=== PATIENT | male | born 1965 | race Caucasian/White ===

== ENCOUNTER → 2018-10-10 | Outpatient (CLI) | payer OTHER ==
[~2018-10-10] MED LIST: CARI350; DOXY100 PO; ETOD400; HYDMOR2 PO; LACT10SY PO; OXYACE10
== END | disposition home or self-care (01) ==
LOC: LAB SHORT 10:02 → PLD 10:02
DX: L30.8 Other specified dermatitis (principal)
CPT/HCPCS: 88305; 88312

== ENCOUNTER 2021-04-06 06:06 | Day surgery (SDC) | payer OTHER ==
[~2021-04-06] VITALS: Ht 175.3 cm; Wt 142.8 kg
[~2021-04-06 06:06] MED LIST changes: +CYCL10 PO; +DUPIXENT P300 MG/2 M SC; +IBUP800 PO; +LOSARTAN POTAS100 M1 PO
--- NOTE | 2021-04-06 10:58 | NUR ---
04/06/21 1058 RANDAL HART PAIN 4-5/10 UPON DISCH. MAX FENTANYL GIVEN. PERCOCET PO TAB GIVEN.
== END 2021-04-06 10:55 | disposition home or self-care (01) ==
LOC: ORSCSDS 06:06
PROVIDERS: Orthopaedic Surgery
PROC: 0RNJ4ZZ Release Right Shoulder Joint, Percutaneous Endoscopic Approach (ICD-10-PCS; principal; 2021-04-06 07:30)
PROC: 0LQ14ZZ Repair Right Shoulder Tendon, Percutaneous Endoscopic Approach (ICD-10-PCS; principal; 2021-04-06 07:30)
DX: M75.121 Complete rotator cuff tear or rupture of right shoulder, not specified as traumatic (principal); M75.21 Bicipital tendinitis, right shoulder; M75.41 Impingement syndrome of right shoulder; I10 Essential (primary) hypertension; I25.10 Atherosclerotic heart disease of native coronary artery without angina pectoris; G47.33 Obstructive sleep apnea (adult) (pediatric); I25.2 Old myocardial infarction; E66.01 Morbid (severe) obesity due to excess calories; Z68.42 Body mass index [BMI] 45.0-49.9, adult; Z79.899 Other long term (current) drug therapy
CPT/HCPCS: A9270; C1713; J0171; J0330; J0461; J0690; J0735; J1100; J1885; J2250; J2405; J2704; J2710; J2795; J3010; J7120

== ENCOUNTER 2023-03-26 16:19 | Emergency (ER) | payer OTHER ==
[~2023-03-26] VITALS: Ht 175.3 cm; Wt 136.1 kg
[2023-03-26 16:49] VITALS: BP 139/72
[2023-03-26] MEDS ORDERED: Percocet 5-3251 EACH PO (19:20)
== END 2023-03-26 19:18 | disposition home or self-care (01) ==
LOC: ER 16:19
DX: M54.41 Lumbago with sciatica, right side (principal); M79.604 Pain in right leg; Z88.5 Allergy status to narcotic agent; Z88.6 Allergy status to analgesic agent; Z88.8 Allergy status to other drugs, medicaments and biological substances
CPT/HCPCS: 93971; 96372; 99283-25; A9270; J1885

== ENCOUNTER 2023-05-31 16:20 | Inpatient (IN) | payer OTHER ==
[~2023-05-31] VITALS: Ht 175.3 cm; Wt 137.5 kg
[~2023-05-31 16:20] MED LIST changes: +Percocet 5-3251 EACH PO
[2023-05-31] MEDS ORDERED: MELO7.5 PO (16:34)
[2023-05-31 17:40] LABS: BASOPHILS ABSOLUTE AUTO 0.09 K/mm3 (0.00-0.23); BASOPHILS PERCENT AUTO 0 % (0-2); EOSINOPHILS ABSOLUTE AUTO 0.07 K/mm3 (0.00-0.68); EOSINOPHILS PERCENT AUTO 0 % (0-6); Hematocrit 41.4 % (37.0-53.0); IMMATURE GRAN ABSOLUTE AUTO 0.19 K/mm3 (0.00-0.10); IMMATURE GRAN PERCENT AUTO 1 % (0-1); LYMPHOCYTES ABSOLUTE AUTO 2.06 K/mm3 (0.84-5.20); LYMPHOCYTES PERCENT AUTO 8 % (21-46); MONOCYTES ABSOLUTE AUTO 1.75 K/mm3 (0.16-1.47); MONOCYTES PERCENT AUTO 7 % (4-13); Mean Corpuscular HGB Conc 33.8 g/dL (31.5-36.5); Mean Corpuscular Volume 95 fL (80-100); Mean Platelet Volume 9.8 fL (9.1-12.4); NEUTROPHILS ABSOLUTE AUTO 21.55 K/mm3 (1.96-9.15); NEUTROPHILS PERCENT AUTO 84 % (41-73); Platelet Count 240 K/mm3 (150-400); RDW Coefficient Variation 12.8 % (11.7-14.2); RDW Standard Deviation 44.1 fL (35.1-46.3); Red Blood Cell Count 4.37 M/mm3 (4.30-5.90); White Blood Cell Count 25.71 K/mm3 (4.00-11.30)
[2023-05-31 18:32] LABS: Ethanol (Alcohol), Blood, Med <3 mg/dL
[2023-05-31 18:35] LABS: Alanine Aminotransfer (ALT/SGP 50 U/L (12-78); Albumin, Blood 3.6 g/dL (3.4-5.0); Albumin/Globulin Ratio 1.1 (0.8-1.8); Alk Phos 63 U/L (50-136); Anion Gap 5 mmol/L (6-16); Aspartate Aminotrans (AST/SGOT 70 U/L (12-37); Bilirubin, Total 0.6 mg/dL (0.1-1.0); Blood Urea Nitrogen 27 mg/dL (8-24); Bun/Creatinine Ratio 28.4 (12.0-20.0); CO2, Blood 25 mmol/L (21-32); Calcium, Blood 9.2 mg/dL (8.5-10.1); Chloride, Blood 107 mmol/L (98-108); Creatinine, Blood 0.95 mg/dL (0.60-1.20); Globulin, Blood 3.4 g/dL (2.2-4.0); Glomerular Filtration Rate 93 (60-); Glucose, Blood 135 mg/dL (70-99); Potassium, Blood 3.9 mmol/L (3.5-5.5); Sodium, Blood 137 mmol/L (136-145)
[2023-05-31 20:59] VITALS: BP 119/83
[2023-05-31] MEDS ORDERED: DUPIXENT P300 MG/2 M (21:07)
[2023-05-31 22:53] LABS: Hemoglobin 13.1 g/dL (13.5-17.5)
[2023-06-01 03:53] VITALS: BP 135/79
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
[2023-06-01 05:25] LABS: BASOPHILS ABSOLUTE AUTO 0.04 K/mm3 (0.00-0.23); BASOPHILS PERCENT AUTO 0 % (0-2); EOSINOPHILS PERCENT AUTO 0 % (0-6); Hematocrit 36.7 % (37.0-53.0); Hemoglobin 12.5 g/dL (13.5-17.5); IMMATURE GRAN ABSOLUTE AUTO 0.05 K/mm3 (0.00-0.10); IMMATURE GRAN PERCENT AUTO 0 % (0-1); LYMPHOCYTES ABSOLUTE AUTO 1.08 K/mm3 (0.84-5.20); LYMPHOCYTES PERCENT AUTO 6 % (21-46); MONOCYTES ABSOLUTE AUTO 1.55 K/mm3 (0.16-1.47); MONOCYTES PERCENT AUTO 8 % (4-13); Mean Corpuscular HGB 32.2 pg (26.0-34.0); Mean Corpuscular HGB Conc 34.1 g/dL (31.5-36.5); Mean Corpuscular Volume 95 fL (80-100); Mean Platelet Volume 10.1 fL (9.1-12.4); NEUTROPHILS ABSOLUTE AUTO 15.81 K/mm3 (1.96-9.15); NEUTROPHILS PERCENT AUTO 85 % (41-73); Platelet Count 196 K/mm3 (150-400); RDW Coefficient Variation 13.2 % (11.7-14.2); RDW Standard Deviation 45.6 fL (35.1-46.3); Red Blood Cell Count 3.88 M/mm3 (4.30-5.90); White Blood Cell Count 18.53 K/mm3 (4.00-11.30)
[2023-06-01 05:31] LABS: Bun/Creatinine Ratio 32.3 (12.0-20.0); Calcium, Blood 8.4 mg/dL (8.5-10.1); Creatinine, Blood 0.78 mg/dL (0.60-1.20); Magnesium, Blood 2.1 mg/dL (1.6-2.4); Potassium, Blood 4.3 mmol/L (3.5-5.5)
[2023-06-01 08:06] VITALS: BP 152/90
[2023-06-01 12:36] LABS: BASOPHILS ABSOLUTE AUTO 0.03 K/mm3 (0.00-0.23); BASOPHILS PERCENT AUTO 0 % (0-2); EOSINOPHILS ABSOLUTE AUTO 0.06 K/mm3 (0.00-0.68); EOSINOPHILS PERCENT AUTO 0 % (0-6); Hematocrit 36.8 % (37.0-53.0); Hemoglobin 12.7 g/dL (13.5-17.5); IMMATURE GRAN ABSOLUTE AUTO 0.03 K/mm3 (0.00-0.10); IMMATURE GRAN PERCENT AUTO 0 % (0-1); LYMPHOCYTES ABSOLUTE AUTO 1.04 K/mm3 (0.84-5.20); LYMPHOCYTES PERCENT AUTO 7 % (21-46); MONOCYTES ABSOLUTE AUTO 1.37 K/mm3 (0.16-1.47); MONOCYTES PERCENT AUTO 9 % (4-13); Mean Corpuscular HGB 32.6 pg (26.0-34.0); Mean Corpuscular HGB Conc 34.5 g/dL (31.5-36.5); Mean Corpuscular Volume 94 fL (80-100); Mean Platelet Volume 9.9 fL (9.1-12.4); NEUTROPHILS ABSOLUTE AUTO 12.71 K/mm3 (1.96-9.15); NEUTROPHILS PERCENT AUTO 83 % (41-73); Platelet Count 171 K/mm3 (150-400); RDW Coefficient Variation 13.3 % (11.7-14.2); RDW Standard Deviation 45.8 fL (35.1-46.3); White Blood Cell Count 15.24 K/mm3 (4.00-11.30)
[2023-06-01 14:48] VITALS: BP 134/81
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
[2023-06-01 19:20] VITALS: BP 157/83
[2023-06-02 02:39] VITALS: BP 146/78
--- NOTE | 2023-06-02 05:58 | NUR ---
SHIFT SUMMARY NO ACUTE CHANGES TO REPORT OVERNIGHT, PT HAS RESTED OFF AND ON T/O SHIFT, HE REPORTS DIFFICULTY SLEEPING. PAIN IN LEFT LEG, RIBS AND ANKLE RELIEVED WITH OXYCODONE AND TYLENOL. ASSESSMENT UNCHANGED, VITALS ARE STABLE. PT HAS BEEN ABLE TO STAND ON THE SIDE OF THE BED TO USE THE URINAL. TOLERATING PO INTAKE. ABRASIONS TO ARMS REDRESSED WITH MEPILEX THIS SHIFT. DRESSINGS TO KNEES C/D/I. BED IN LOWEST POSITION, CALL LIGHT WITHIN REACH.
[2023-06-02 07:22] VITALS: BP 128/75
[2023-06-02 14:38] VITALS: BP 116/60
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
--- NOTE | 2023-06-02 16:39 | NUR ---
ASSUMED CARE OF PT FROM BRANDI Solorio RN. PROVIDED FAN FOR COMFORT. CALL LIGHT IN REACH.
--- NOTE | 2023-06-02 17:49 | NUR ---
DR ALANIZ IN TO SEE PT.
[2023-06-02 19:14] VITALS: BP 153/75
[2023-06-03 02:26] VITALS: BP 157/88
--- NOTE | 2023-06-03 04:15 | NUR ---
SHIFT SUMMARY PATIENT AOX4, ANDRZEJ WRAP TO LLE ELEVATED ON PILLOWS WITH ICE. MEPILEX TO VINNY ELBOW AND DRESSING TO VINNY KNEES. ROAD RASH RIGHT LOWER BACK. 2L NC WHILE AWAKE SPO2 REMAINS ABOVE 94%. CPAP WHILE ASLEEP WITH 2 L O2 BLEED IN. PATIENT IS ABLE TO TRANSFER TO CHAIR BY BEDSIDE. SITS UP TO USE URINAL. TOLERATING PO INTAKE PAIN MANAGED WELL. VSS, DENIES N/T. CALL LIGHT IN REACH WILL GIVE REPORT TO DAY SHIFT RN.
[2023-06-03 07:33] VITALS: BP 137/73
--- NOTE | 2023-06-03 10:27 | NUR ---
EFRAIN/THERAPY WORKED WITH 210.
--- NOTE | 2023-06-03 11:59 | NUR ---
PNEUMATIC WALKING CAST BOOT BRUSH HOLDER ASSEMBLER HAS NO ONE AVAILABLE TO FIT PT AT THIS TIME. [facility] CONTACTED; PLAN TO SEE PT AT APPROXIMATELY 1300 TO FIT PT FOR L PNEUMATIC WALKING CAST BOOT ORDERED BY DR SINGH.
--- NOTE | 2023-06-03 13:42 | NUR ---
[facility] DELIVERED PNEUMATIC WALKING CAST BOOT TO ROOM.
[2023-06-03 14:47] VITALS: BP 143/77
--- NOTE | 2023-06-03 17:44 | NUR ---
SUMMARY NO ACUTE CHANGES T/O SHIFT. PT WORKED WITH PT AND OT THIS MORNING. PAINFUL FOR PT TO SIT UP IN CHAIR, RESTED IN BED T/O MUCH OF DAY. [facility] DELIVERED PNEUMATIC CAST BOOT PER DR SINGH' ORDER. MEDICATED PER ORDERS FOR PAIN AND PROVIDED ICE FOR COMFORT TO LLE. CALL LIGHT IN REACH.
[2023-06-03 20:17] VITALS: BP 123/84
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
--- NOTE | 2023-06-04 04:37 | NUR ---
SHIFT SUMMARY PATIENT UP IN THE CHAIR THIS EVENING, ABLE TO TRANSFER SELF WHILE NWB ON LLE. ORTHOTICS BOOT WAS BROUGHT IN AND FITTED ON DAY SHIFT, PLAN FOR PATIENT TO WORK WITH PT AND OT TODAY. CHANGED DRESSINGS ON VINNY UE AND VINNY KNEES. YELLOW DRNG NOTED ON R KNEE DRESSING. ANDRZEJ WRAP LOOSLY TO NON ADHERANT DRESSINGS ON UE. MEDICATED FOR PAIN AND TOLERATED WELL. ON RA WHILE AWAKE, CPAP WHILE SLEEPING. NO BM YET, REPORTS MINIMAL FOOD INTAKE. VSS, CALL LIGHT IN REACH.
[2023-06-04 05:21] VITALS: BP 141/94
[2023-06-04 07:14] VITALS: BP 123/75
[2023-06-04 08:36] LABS: Hematocrit 34.2 % (37.0-53.0); Hemoglobin 11.8 g/dL (13.5-17.5); Mean Corpuscular HGB 32.4 pg (26.0-34.0); Mean Corpuscular HGB Conc 34.5 g/dL (31.5-36.5); Mean Corpuscular Volume 94 fL (80-100); Mean Platelet Volume 9.8 fL (9.1-12.4); Platelet Count 167 K/mm3 (150-400); RDW Coefficient Variation 12.9 % (11.7-14.2); Red Blood Cell Count 3.64 M/mm3 (4.30-5.90)
[2023-06-04 14:42] VITALS: BP 139/82
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
[2023-06-04 19:43] VITALS: BP 121/79
[2023-06-05 04:28] VITALS: BP 133/83
[2023-06-05 04:41] LABS: Hematocrit 33.8 % (37.0-53.0); Hemoglobin 11.6 g/dL (13.5-17.5); Mean Corpuscular HGB Conc 34.3 g/dL (31.5-36.5); Mean Corpuscular Volume 93 fL (80-100); Mean Platelet Volume 9.8 fL (9.1-12.4); Platelet Count 162 K/mm3 (150-400); RDW Coefficient Variation 12.8 % (11.7-14.2); RDW Standard Deviation 43.8 fL (35.1-46.3); Red Blood Cell Count 3.62 M/mm3 (4.30-5.90); White Blood Cell Count 8.52 K/mm3 (4.00-11.30)
--- NOTE | 2023-06-05 05:03 | NUR ---
SHIFT SUMMARY AOX4. VSS. REPORTED 7/10 PAIN IN LLE ANKLE & L RIBS, APPLIED ICE TO LLE & MEDICATED 1x c 2 TAB PERCOCET. PT REPORTED PAIN RELIEF DECREASED TO 4/10. +1 EDEMA TO LLE ALONG WITH BRUISING, ABLE TO WIGGLE TOES & FEEL TOUCH, STRONG PULSE, NWB LLE. PLAN TO DC HOME TODAY. CALL LIGHT IN REACH, WILL MONITOR UNTIL DAY NURSE ASSUMES CARE.
[2023-06-05 07:15] VITALS: BP 132/84
[2023-06-05] MEDS ORDERED: OXYACE7.5T PO (11:15)
--- NOTE | 2023-06-05 11:41 | NUR ---
DISCHARGE PT EDUCATED ON AND RECEIVED DISCHARGE INSTRUCTIONS AND VERBALIZED AN UNDERSTANDING. PT'S IS AT THE PHARMACY PICKING UP PAIN MED PRESCRIPTION. IV DC'D. PT'S LEFT ANKLE WRAPPED WITH ANDRZEJ WRAP PER REQUEST. PT HAS WALKING BOOT THAT WAS ORDERED BY Sylvia PT PACKING UP PERSONAL BELONGINGS AND WAITING FOR TO TAKE HIM HOME.
== END 2023-06-05 12:49 | disposition home or self-care (01) | DRG 964 ==
LOC: ER 16:20 → SURS 20:21
PROVIDERS: Emergency Medicine; Surgery; ADMIT Surgery
PROC: 5A09357 Assistance with Respiratory Ventilation, Less than 24 Consecutive Hours, Continuous Positive Airway Pressure (ICD-10-PCS; principal; 2023-05-31)
DX: S36.039A Unspecified laceration of spleen, initial encounter (principal); S22.42XA Multiple fractures of ribs, left side, initial encounter for closed fracture; S27.0XXA Traumatic pneumothorax, initial encounter; S36.029A Unspecified contusion of spleen, initial encounter; M77.52 Other enthesopathy of left foot and ankle; D64.9 Anemia, unspecified; S00.83XA Contusion of other part of head, initial encounter; S82.892A Other fracture of left lower leg, initial encounter for closed fracture; S76.312A Strain of muscle, fascia and tendon of the posterior muscle group at thigh level, left thigh, initial encounter; I10 Essential (primary) hypertension; G47.30 Sleep apnea, unspecified; D89.89 Other specified disorders involving the immune mechanism, not elsewhere classified; S90.02XA Contusion of left ankle, initial encounter; V49.40XA Driver injured in collision with unspecified motor vehicles in traffic accident, initial encounter; Z99.89 Dependence on other enabling machines and devices; Z79.899 Other long term (current) drug therapy; Z98.890 Other specified postprocedural states; Z90.49 Acquired absence of other specified parts of digestive tract
CPT/HCPCS: 36415; 70450; 71045; 71260; 72125; 73552; 73610; 73721; 74177; 80048; 80053; 83735; 85014; 85018; 85025; 85027; 86850; 86900; 86901; 90471; 90702; 94660; 94762; 96361; 96374-59; 96375; 96376; 97110; 97116; 97162; 97166; 97168; 97530; 97535; 99285-25; A9270; G0480; J1170; J1650; J1885; J2405; J7120; L0160; Q9967

== ENCOUNTER → 2025-04-06 | Outpatient (CLI) | payer OTHER ==
[~2025-04-06] MED LIST changes: +DUPIXENT P300 MG/2 M; +MELO7.5 PO; +OXYACE7.5T PO
[2025-04-06 14:46] LABS: BASOPHILS ABSOLUTE AUTO 0.04 K/mm3 (0.00-0.23); BASOPHILS PERCENT AUTO 1 % (0-2); EOSINOPHILS ABSOLUTE AUTO 0.46 K/mm3 (0.00-0.68); EOSINOPHILS PERCENT AUTO 6 % (0-6); Hematocrit 39.4 % (37.0-53.0); Hemoglobin 13.3 g/dL (13.5-17.5); IMMATURE GRAN ABSOLUTE AUTO 0.02 K/mm3 (0.00-0.10); IMMATURE GRAN PERCENT AUTO 0 % (0-1); LYMPHOCYTES ABSOLUTE AUTO 1.27 K/mm3 (0.84-5.20); LYMPHOCYTES PERCENT AUTO 16 % (21-46); MONOCYTES ABSOLUTE AUTO 0.96 K/mm3 (0.16-1.47); MONOCYTES PERCENT AUTO 12 % (4-13); Mean Corpuscular HGB Conc 33.8 g/dL (31.5-36.5); Mean Corpuscular Volume 94 fL (80-100); NEUTROPHILS ABSOLUTE AUTO 5.47 K/mm3 (1.96-9.15); NEUTROPHILS PERCENT AUTO 67 % (41-73); NRBC ABSOLUTE 0.00 K/mm3 (0.00-0.02); NRBC Auto 0.0 /100 WBC (0.0-0.2); Platelet Count 240 K/mm3 (150-400); RDW Coefficient Variation 13.2 % (11.7-14.2); RDW Standard Deviation 45.5 fL (35.1-46.3)
[2025-04-06 14:57] LABS: Alanine Aminotransfer (ALT/SGP 34.0 U/L (12-78); Albumin, Blood 3.6 g/dL (3.4-5.0); Albumin/Globulin Ratio 0.9 (0.8-1.8); Anion Gap 12.0 mmol/L (3-11); Aspartate Aminotrans (AST/SGOT 15.0 U/L (12-37); Bilirubin, Total 0.7 mg/dL (0.1-1.0); Blood Urea Nitrogen 19.0 mg/dL (8-24); CO2, Blood 26.0 mmol/L (21-32); Calcium, Blood 9.5 mg/dL (8.5-10.1); Chloride, Blood 103.0 mmol/L (98-108); Creatinine, Blood 0.86 mg/dL (0.60-1.20); Globulin, Blood 4.0 g/dL (2.2-4.0); Glucose, Blood 93.0 mg/dL (70-99); Potassium, Blood 4.3 mmol/L (3.5-5.5); Sodium, Blood 137.0 mmol/L (136-145); Total Protein, Blood 7.6 g/dL (6.4-8.2)
== END | disposition home or self-care (01) ==
LOC: LAB SHORT 14:41 → LAB 14:41
PROVIDERS: Emergency Medicine
DX: R60.0 Localized edema (principal)
CPT/HCPCS: 80053; 85025

== ENCOUNTER 2025-04-18 03:24 | Day surgery (SDC) | payer OTHER ==
[2025-04-18] MEDS ORDERED: Lidocaine HCl 4% Cream 5 GM ONE (12:33)
== END 2025-04-18 23:00 | disposition home or self-care (01) ==
LOC: WOUND 03:24
DX: S81.801A Unspecified open wound, right lower leg, initial encounter (principal); L03.115 Cellulitis of right lower limb; I87.2 Venous insufficiency (chronic) (peripheral); I10 Essential (primary) hypertension; M19.90 Unspecified osteoarthritis, unspecified site; W22.03XA Walked into furniture, initial encounter
CPT/HCPCS: A9270; G0463

== ENCOUNTER 2025-04-25 03:36 | Day surgery (SDC) | payer OTHER ==
[2025-04-25] MEDS ORDERED: Lidocaine HCl 4% Cream 5 GM ONE (09:24)
== END 2025-04-25 23:00 | disposition home or self-care (01) ==
LOC: WOUND 03:36
DX: L03.115 Cellulitis of right lower limb (principal); S81.801A Unspecified open wound, right lower leg, initial encounter; I87.2 Venous insufficiency (chronic) (peripheral); W01.0XXA Fall on same level from slipping, tripping and stumbling without subsequent striking against object, initial encounter
CPT/HCPCS: A9270

== ENCOUNTER 2025-05-07 04:24 | Day surgery (SDC) | payer OTHER ==
[2025-05-07] MEDS ORDERED: Lidocaine HCl 4% Cream 5 GM ONE (09:17)
== END 2025-05-07 23:00 | disposition home or self-care (01) ==
LOC: WOUND 04:24
DX: L03.115 Cellulitis of right lower limb (principal); I87.2 Venous insufficiency (chronic) (peripheral)
CPT/HCPCS: A9270

== ENCOUNTER 2025-05-14 00:54 | Day surgery (SDC) | payer OTHER ==
[2025-05-14] MEDS ORDERED: Lidocaine HCl 4% Cream 5 GM ONE (09:05)
== END 2025-05-14 23:00 | disposition home or self-care (01) ==
LOC: WOUND 00:54
DX: L97.815 Non-pressure chronic ulcer of other part of right lower leg with muscle involvement without evidence of necrosis (principal); L03.115 Cellulitis of right lower limb; I87.2 Venous insufficiency (chronic) (peripheral)
CPT/HCPCS: A9270

== ENCOUNTER 2025-05-22 04:16 | Day surgery (SDC) | payer OTHER ==
[2025-05-22] MEDS ORDERED: Lidocaine HCl 4% Cream 5 GM ONE ×2 (09:46→10:03)
== END 2025-05-22 23:00 | disposition home or self-care (01) ==
LOC: WOUND 04:16
DX: L03.115 Cellulitis of right lower limb (principal); I87.2 Venous insufficiency (chronic) (peripheral)
CPT/HCPCS: A9270

== ENCOUNTER 2025-05-31 01:53 | Day surgery (SDC) | payer OTHER ==
[2025-05-31] MEDS ORDERED: Lidocaine HCl 4% Cream 5 GM ONE (10:07)
== END 2025-05-31 23:00 | disposition home or self-care (01) ==
LOC: WOUND 01:53
DX: S81.801D Unspecified open wound, right lower leg, subsequent encounter (principal); W01.190D Fall on same level from slipping, tripping and stumbling with subsequent striking against furniture, subsequent encounter; L03.115 Cellulitis of right lower limb
CPT/HCPCS: A9270

== ENCOUNTER 2025-06-05 01:56 | Day surgery (SDC) | payer OTHER | END 2025-06-05 23:00 | disposition home or self-care (01) | LOC: WOUND 01:56 | DX: L03.115 Cellulitis of right lower limb (principal); S81.801D Unspecified open wound, right lower leg, subsequent encounter; I87.2 Venous insufficiency (chronic) (peripheral) | CPT/HCPCS: G0463 ==

== ENCOUNTER 2025-06-12 02:17 | Day surgery (SDC) | payer OTHER ==
[2025-06-12] MEDS ORDERED: Lidocaine HCl 4% Cream 5 GM ONE (09:18)
== END 2025-06-12 23:00 | disposition home or self-care (01) ==
LOC: WOUND 02:17
DX: L03.115 Cellulitis of right lower limb (principal); S81.801D Unspecified open wound, right lower leg, subsequent encounter; I87.2 Venous insufficiency (chronic) (peripheral)
CPT/HCPCS: A9270; G0463

== ENCOUNTER 2025-06-26 02:11 | Day surgery (SDC) | payer OTHER ==
[2025-06-26] MEDS ORDERED: Lidocaine HCl 4% Cream 5 GM ONE (09:40)
== END 2025-06-26 23:00 | disposition home or self-care (01) ==
LOC: WOUND 02:11
DX: L03.115 Cellulitis of right lower limb (principal); I87.2 Venous insufficiency (chronic) (peripheral)
CPT/HCPCS: A9270; G0463

== ENCOUNTER 2025-07-10 00:22 | Day surgery (SDC) | payer OTHER | END 2025-07-10 23:00 | disposition home or self-care (01) | LOC: WOUND 00:22 | DX: L03.115 Cellulitis of right lower limb (principal); L97.812 Non-pressure chronic ulcer of other part of right lower leg with fat layer exposed; I87.2 Venous insufficiency (chronic) (peripheral) | CPT/HCPCS: G0463 ==

== ENCOUNTER 2025-07-17 03:02 | Day surgery (SDC) | payer OTHER ==
[2025-07-17] MEDS ORDERED: Lidocaine HCl 4% Cream 5 GM ONE (09:34)
== END 2025-07-17 23:00 | disposition home or self-care (01) ==
LOC: WOUND 03:02
DX: L03.115 Cellulitis of right lower limb (principal); L97.812 Non-pressure chronic ulcer of other part of right lower leg with fat layer exposed; I87.2 Venous insufficiency (chronic) (peripheral); I10 Essential (primary) hypertension
CPT/HCPCS: A9270

== ENCOUNTER 2025-07-24 00:38 | Day surgery (SDC) | payer OTHER ==
[2025-07-24] MEDS ORDERED: Lidocaine HCl 4% Cream 5 GM ONE (09:30)
== END 2025-07-24 23:00 | disposition home or self-care (01) ==
LOC: WOUND 00:38
DX: L03.115 Cellulitis of right lower limb (principal); I87.2 Venous insufficiency (chronic) (peripheral); I10 Essential (primary) hypertension
CPT/HCPCS: A9270; G0463

== ENCOUNTER 2025-07-31 01:45 | Day surgery (SDC) | payer OTHER | END 2025-07-31 23:00 | disposition home or self-care (01) | LOC: WOUND 01:45 | DX: L97.812 Non-pressure chronic ulcer of other part of right lower leg with fat layer exposed (principal); S81.801A Unspecified open wound, right lower leg, initial encounter; L03.115 Cellulitis of right lower limb; I87.2 Venous insufficiency (chronic) (peripheral); W08.XXXA Fall from other furniture, initial encounter ==

== ENCOUNTER 2025-08-07 00:16 | Day surgery (SDC) | payer OTHER | END 2025-08-07 23:00 | disposition home or self-care (01) | LOC: WOUND 00:16 | DX: L03.115 Cellulitis of right lower limb (principal); I87.2 Venous insufficiency (chronic) (peripheral) | CPT/HCPCS: G0463 ==

== ENCOUNTER 2025-08-21 07:46 | Day surgery (SDC) | payer OTHER ==
[~2025-08-21] VITALS: Ht 175.3 cm; Wt 131.2 kg
[~2025-08-21 07:46] MED LIST changes: +Balanced Salt Epinephrine Irrigation Solution 500 mL IR SCH; +Moxifloxacin HCL 0.5 MG/0.1 ML 0.4MLSYR LEFTEYE SCH; +Ondansetron 4 MG SoluTab MM PRN; +PHENYLEPHRINE\\TROPICAMIDE\\TETRACAINE OPHTHALMIC DILATING SOLN LEFTEYE PRN; +Povidone-Iodine 450 DROP/30 ML Solution LEFTEYE SCH; +Povidone-Iodine 450 DROP/30 ML Solution ONE; +Tetracaine HCl/Pf 0.5% Opth Soln 4 ml ONE
--- NOTE | 2025-08-21 08:47 | NUR ---
08/21/25 0847 Rach Campbell PT REPORTED ANXIETY LEVEL WAS 5/10 PRIOR TO ADMINISTRATION OF VALIUM 10MG PO @ 0842. TETRACAINE IN AT 0846. PLEDGETT IN AT 0847. CALL LIGHT IN PT'S HAND. CONTINUOUS SPO2 AND HR MONITORING IN PLACE.
--- NOTE | 2025-08-21 09:25 | NUR ---
08/21/25 0925 Darcie Fulton HR:61 RR:14 BP:188/11 SPO2:96% ON 10L BLOW BY O2
[2025-08-21 09:45] VITALS: BP 152/79
--- NOTE | 2025-08-21 11:15 | NUR ---
08/21/25 1115 RANDAL HART PT C/O RIGHT SHOULDER PAIN. CHRONIC 03/05. DOES NOT TAKE MEDICATION AT HOME. ONCE RAISED HOB, PAIN RESOLVED DENIES PAIN IN LEFT EYE.
== END 2025-08-21 09:56 | disposition home or self-care (01) ==
LOC: ORSCSDS 07:46
PROVIDERS: Student in an Organized Health Care Education/Training Program
PROC: 08RK3JZ Replacement of Left Lens with Synthetic Substitute, Percutaneous Approach (ICD-10-PCS; principal; 2025-08-21 09:30)
DX: H25.813 Combined forms of age-related cataract, bilateral (principal); Z96.1 Presence of intraocular lens; I10 Essential (primary) hypertension; Z79.899 Other long term (current) drug therapy
CPT/HCPCS: A9270; V2632

== ENCOUNTER 2025-08-27 11:07 | Day surgery (SDC) | payer OTHER ==
[~2025-08-27] VITALS: Ht 175.3 cm; Wt 127.8 kg
[~2025-08-27 11:07] MED LIST changes: -Balanced Salt Epinephrine Irrigation Solution 500 mL IR SCH; -Moxifloxacin HCL 0.5 MG/0.1 ML 0.4MLSYR LEFTEYE SCH; -Ondansetron 4 MG SoluTab MM PRN; -PHENYLEPHRINE\\TROPICAMIDE\\TETRACAINE OPHTHALMIC DILATING SOLN LEFTEYE PRN; -Povidone-Iodine 450 DROP/30 ML Solution LEFTEYE SCH
--- NOTE | 2025-08-27 11:48 | NUR ---
08/27/25 114 Charlotte Castaneda CALL LIGHT WITHIN REACH. PT ON CONTINOUS PULSE OXIMETER FOR CLOSE MONITORING. EYE DROPS IN AROUND 2063
[2025-08-27] MEDS ORDERED: Moxifloxacin HCL 0.5 MG/0.1 ML 0.4MLSYR XX ONE (12:29)
[2025-08-27] MEDS ORDERED: Tetracaine HCl 0.5% Opth Soln 15 ml XX ONE (12:29)
[2025-08-27] MEDS ORDERED: Povidone-Iodine 450 DROP/30 ML Solution XX ONE (12:29)
[2025-08-27] MEDS ORDERED: BSS PLUS/EPINEPHRINE IRRIGATION SOLUTION 500 ML IR ONE (12:29)
--- NOTE | 2025-08-27 12:36 | NUR ---
08/27/25 1236 Arnold Sanchez N 124/75 100 10 L BLOW BY O2 63 18
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
[2025-08-27 13:50] VITALS: BP 142/85
== END 2025-08-27 13:06 | disposition home or self-care (01) ==
LOC: ORSCSDS 11:07
PROVIDERS: Student in an Organized Health Care Education/Training Program
PROC: 08RJ3JZ Replacement of Right Lens with Synthetic Substitute, Percutaneous Approach (ICD-10-PCS; principal; 2025-08-27 12:30)
DX: H25.811 Combined forms of age-related cataract, right eye (principal); Z96.1 Presence of intraocular lens; I10 Essential (primary) hypertension; Z79.899 Other long term (current) drug therapy
CPT/HCPCS: A9270; J2003; V2632